=== PATIENT | female | born 1965 | race Caucasian/White ===

== ENCOUNTER 2021-10-31 09:55 | Outpatient (CLI) | payer BC, SELFPAY ==
--- NOTE | 2021-10-31 | IMM_PTH ---
PATIENT: ARYAN RODRIGEZ LOC: [facility] U#:[id number] AGE/SX: 56/F ROOM: RE10/31/[address]: Dr. Edita Vicente MD : 1965 BED: DIS: 10/31/2021 SPEC #: [id number] RECD: 11/01/21 12:59 STATUS: KALLIE REQ #: [id number] SHYLA: 10/31/21 00:[address]: Edita Vicente DEPT: IMMUNOHISTOCHEMISTRY RECD BY: Rosario Jovel ENTERED: 11/01/21 13:00 SP TYPE: IMMUNO OTHR DR: Dr. Terrence García MD Tissues: Left breast, NOS Procedures: CALPONIN-1 (add) CK5-6 (add) CK8 (add) E-CAD (add) HER2 RICH (add) KI-67 (add) P53 (add) CT (add) P40 (add) ER (initial) PHYSICIAN & INSTITUTION [place] [id number] SPECIMEN INFORMATION: Tissue Source: Left breast, 10 o?clock, middle depth Clinical Info: Grouped pleomorphic calcifications in left breast at 10 o?clock middle depth Specimen Number: [id number] CPT code: 34631, 36435 x6, 48638 x3 METHODOLOGY: Deparaffinized sections of prefer/formalin-fixed tissue or PAP/DQ stained slides are incubated with monoclonal/polyclonal antibodies/oligonucleotide probes. Localization is made via biotin free immunoperoxidase method. Appropriate controls are performed and reacted as expected. Results on target cell population are indicated in the following table: RESULTS: ANTIBODY / CLONE RESULT P53 (DO-7) positive, 85% Ki-67 (30-9) positive, 40% CK8 ([id number]) positive CK5-6 (D5 & 1684) positive Calponin-1 (CH810Z) positive P40 (BC28) positive E-Cad (ECH-6) positive MORPHOMETRIC ANALYSIS ER (clone 6F11) negative, 0% CT (clone 16/1E2) negative, 0% Her-2Neu (clone CB11) positive, 3+ The prognostic test for HER2 is performed on formalin-fixed paraffin embedded tissue. A 3+ (positive) staining pattern is defined as intense, homogeneous, complete, circumferential membranous staining in >10% of contiguous tumor cells. A similar weak (2+) staining pattern is interpreted as equivocal. FIDELINA follow-up testing is recommended for all equivocal cases. Positivity/negativity for ER/CT is reported if > or < 1% of the tumor cells are immuno- reactive, respectively. The ASCO/CAP criteria is used for scoring. Reference: Journal of Clinical Oncology, 2013; 31:6888-4761 & 2010; 16:6990-4716. Duration of fixation: 9 Hrs; Sample Adequate: Yes. These assays have not been validated on decalcified tissues. Results should be interpreted with caution given the likelihood of false negativity on decalcified specimens. These tests were developed and their performance characteristics determined by [facility]. They may not have been cleared or approved by the [place]. Food and Drug Administration. The FDA has determined that such clearance or approval is not necessary. The above immunohistochemical/dualISH markers are ordered and reviewed by the Pathologist. 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 AM:russ 11/02/2021
--- NOTE | 2021-10-31 10:40 | BRBX_PTH ---
PATIENT: ARYAN RODRIGEZ LOC: [facility] U#:[id number] AGE/SX: 56/F ROOM: RE10/31/[address]: Dr. Edita Vicente MD : 1965 BED: DIS: 10/31/2021 SPEC #: [id number] RECD: 10/31/21 11:09 STATUS: KALLIE REQ #: [id number] SHYLA: 10/31/21 10:[address]: Edita Vicente DEPT: SURGICAL PATHOLOGY RECD BY: Elis Barragan ENTERED: 10/31/21 12:30 SP TYPE: BREAST BX OT DR: Dr. Terrence García MD Tissues: Left breast, NOS Procedures: Surgery Specimen Level IV HEADER OPERATION: Left breast stereotactic biopsy PRE-OP DIAGNOSIS: Grouped pleomorphic calcifications in the left breast at 10 o?clock middle depth TISSUE SUBMITTED: Left breast core tissue ISCHEMIC TIME: 1 minute FIXATION TIME: 9 hours MICROSCOPIC DIAGNOSIS Left breast at 10 o?clock, stereotactic core biopsy: Ductal carcinoma in situ with the following characteristics: Nuclear Grade ? 2-3 Type ? solid with comedo necrosis Calcifications ? present Maximal length ? 3.5 mm See comment. AM:russ 11/01/2021 COMMENT Immunohistochemistry ([id number]) supports the above diagnosis. Case has been reviewed in consultation with Dr. Montero who concurs with the above diagnosis. IDC:SJ MICROSCOPIC DESCRIPTION Slides are reviewed. GROSS DESCRIPTION Received is one container labeled with the patient's name and not further designated. The specimen consists of multiple irregular and elongated fragments of yellow-pichardo soft tissue that in aggregate measure 4.5 x 4 x 0.2 cm. The specimen is totally submitted in two cassettes. / AM:russ 10/31/2021 TC:0 CPT: 67483 ADDENDUM ADDENDUM ADDENDUM ADDENDUM ADDENDUM ADDENDUM ADDENDUM ADDENDUM ADDENDUM ADDENDUM ADDENDUM 01/01/2022 09:47 ADDENDUM 01/01/2022 09:47 ADDENDUM 01/01/2022 09:47 ADDENDUM 01/01/2022 09:47 ADDENDUM 01/01/2022 09:47 This addendum is added to incorporate an outside pathology consultation report. The case was examined at [facility] (#[id number]) and the following diagnosis was rendered. 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 Please see complete above mentioned consultation report in EMR
--- NOTE | 2021-10-31 10:52 | PCM.OPRPT ---
Report of Operation Date of Procedure: 10/31/21 Pre-Operative Diagnosis: abnormal calcifications on left breast mammograms Post-Operative Diagnosis: same Surgery/Procedure Performed:: left breast stereotactic biopsy Description of Surgical Findings:: abnormal calcifications noted Surgeon: Edita Vicente Type of Anesthesia: Local Specimen's removed: left breast tissue Estimated Blood Loss (mL): minimal Description of Procedure: After informed consent was given, the patient was brought into the Breast Biopsy suite. Appropriate time out protocol was followed. The patient was placed in the prone position on the stereotactic biopsy table. The patient?s left breast was then placed in the opening at the head of the biopsy table. A drill instructor compression mammogram was then obtained in the CC view. The suspicious radiological lesion was thus identified. Stereo pictures of the lesion were then taken for XYZ coordinates. The Mammotome biopsy stylus was then positioned where it would be entering into the patient?s breast. The skin at this site was then cleansed with a surgical skin preparation. The skin and subcutaneous tissues at this site were then infiltrated with 1% xylocaine. A small skin incision was made with an 11 blade scalpel. The biopsy stylus was then positioned into the patient?s breast at the proper coordinates of depth. Using the Mammotome vacuum-assist device, several core samples of breast tissue were obtained. A specimen mammogram was the obtained. It revealed that the abnormal calcifications were within the specimen. I reviewed this personally and concluded that the tissue sampling was adequate. A hemostatic marker clip was then placed into the biopsy cavity and a drill instructor film revealed that it was properly deployed. The patient was then placed in the supine position and pressure was applied to the breast until no active bleeding was noted. Steristrips were applied to reapproximate the skin. A unilateral mammogram in the CC and MLO view were then taken which revealed that the marker clip was in the same area as the previous suspicious lesion. The patient tolerated the procedure well and was discharged from the Breast Biopsy suite in good condition. Complications none noted
== END 2021-10-31 23:59 | disposition home or self-care (01) ==
PROVIDERS: PCP Family Medicine; Visit Provider Surgery
DX: R92.8 Other abnormal and inconclusive findings on diagnostic imaging of breast (principal)
CPT/HCPCS: 19101; 19081; 88305; 88341; 88342; J7050